=== PATIENT | male | born 1940 ===

== ENCOUNTER 2021-05-14 15:57 | Inpatient (IN) | payer OTHER ==
[~2021-05-14] VITALS: Ht 188 cm; Wt 91.7 kg
[2021-05-14] MEDS ORDERED: ASPI-963 PO (16:17)
[2021-05-14] MEDS ORDERED: MULT-211 PO (16:17)
[2021-05-14] MEDS ORDERED: LECI400C PO (16:17)
[2021-05-14] MEDS ORDERED: DEXAMETHASONE 4 MG/ML, 1ML IV ONE (16:30)
[2021-05-14 16:42] LABS: BASOPHILS % (AUTO) 0 % (0-1); EOSINOPHILS % (AUTO) 0 % (1-7); LYMPHOCYTES % (AUTO) 16 % (22-44); MEAN CORPUSCULAR HEMOGLOBIN 30.5 pg (27.5-34.5); MEAN CORPUSCULAR HGB CONC 34.4 g/dL (33.2-36.2); MEAN PLATELET VOLUME 6.5 fL (7.4-10.4); MONOCYTES % (AUTO) 3 % (2-9); NEUTROPHILS % (AUTO) 81 % (42-75); PLATELET COUNT 186 x10^3/uL (130-400); RED BLOOD COUNT 4.32 x10^6/uL (4.38-5.82); RED CELL DISTRIBUTION WIDTH 13.9 % (9.4-14.8)
[2021-05-14] MEDS ORDERED: DEXAMETHASONE 4 MG/ML, 1ML ONE (16:42)
[2021-05-14 16:49] LABS: ALANINE AMINOTRANSFERASE 46 U/L (12-78); ALBUMIN 2.5 g/dL (3.4-5.0); ANION GAP 7 mmol/L (5-15); CALCIUM 7.7 mg/dL (8.5-10.1); CHLORIDE 97 mmol/L (98-107); CREATININE 0.74 mg/dL (0.7-1.3)
[2021-05-14 16:51] LABS: ALKALINE PHOSPHATASE 86 U/L (45-117); BILIRUBIN,TOTAL 0.7 mg/dL (0.2-1.0); TOTAL PROTEIN 5.8 g/dL (6.4-8.2)
[2021-05-14] MEDS ORDERED: CEFTRIAXONE 1,000 MG in DEXTROSE 5% 50 ML IVPB ONE (17:00)
[2021-05-14] MEDS ORDERED: DOXYCYCLINE 100 MG in DEXTROSE 5% 250 ML IV ONE (17:00)
--- NOTE | 2021-05-14 17:08 | NUR ---
WEANED FROM 15L NRB TO 10L OXYMASK PER RT COVID SWAB OBTAINED PER GUIDELINES-WALKED TO LAB ABX STARTED AFTER CONFIRMATION THAT BLOOD CULTURES DRAWN
--- NOTE | 2021-05-14 18:32 | NUR ---
CONTACT: KARTIK HENRIQUEZ [phone]
--- NOTE | 2021-05-14 18:41 | NUR ---
REPORT FROM KALYN YOUNG
[2021-05-14] MEDS ORDERED: ENOXAPARIN 40 MG/0.4 ML SQ SCH (19:00)
[2021-05-14] MEDS ORDERED: LABETALOL 5MG/ML, 20ML IVPush PRN (19:00)
[2021-05-14] MEDS ORDERED: ONDANSETRON 2MG/ML, 2ML IVPush PRN (19:00)
[2021-05-14] MEDS ORDERED: POLYETHYLENE GLYCOL 17 GM PACKET PO PRN (19:00)
[2021-05-14] MEDS ORDERED: PHARMACY MAY ADJ FOR RENAL FX MC PRN (19:00)
--- NOTE | 2021-05-14 19:00 | NUR ---
REPORT TO LAYTON YOUNG
--- NOTE | 2021-05-14 19:28 | NUR ---
PT AT EDGE OF BED TRYING TO URINATE AND HAS TAKEN OXYGEN OFF TO DO SO. PT 70% RA. PT HELPED BACK INTO BED AND OXGEN PLACED BACK ON. PT NOW 88-90% ON OXYMASK AT 12 L.
--- NOTE | 2021-05-14 19:36 | NUR ---
PTS O2 AT 80%. PT HAS MASK OFF TO DRINK OJ. PT RE-EDUCATED ON IMPORTANCE OF KEEPING OXYGEN ON. OXY MASK PLACED BACK AT 15 L.
--- NOTE | 2021-05-14 19:50 | NUR ---
RT CALLED TO ASK ABOUT PLACING PT ON HIGH FLOW 02. RT STATED THEY WILL BE DOWN SHORTLY TO ASSESS PT.
--- NOTE | 2021-05-14 19:53 | NUR ---
PT NOW ON HIGH FLOW AT 40 L 90%.
--- NOTE | 2021-05-14 21:25 | NUR ---
SON, FLORENCE CALLED FOR UPDATE. WANTS NOTE PLACED THAT NO REMDISIVER GIVEN UNTIL THEY ARE ABLE TO TALK TO PCP. WILL PASS ON IN REPORT TO FOLLOWING RN WHEN ABLE.
--- NOTE | 2021-05-14 22:24 | NUR ---
REPORT TO RUDI YOUNG
--- NOTE | 2021-05-14 22:25 | NUR ---
SONFLORENCE CALLED AND UPDATED ABOUT PT MOVING TO ROOM 408, VM LEFT.
[2021-05-14] MEDS: FAMOTIDINE 20 MG TABLET PO SCH (23:10)
[2021-05-14] MEDS: ASCORBIC ACID 500 MG TABLET PO SCH (23:10)
[2021-05-14] MEDS: MELATONIN 5 MG TABLET PO SCH (23:10)
[2021-05-14 23:14] VITALS: BP 129/74
[2021-05-15 04:15] LABS: BASOPHILS % (AUTO) 0 % (0-1); EOSINOPHILS % (AUTO) 0 % (1-7); LYMPHOCYTES % (AUTO) 16 % (22-44); MEAN CORPUSCULAR HEMOGLOBIN 30.7 pg (27.5-34.5); MEAN CORPUSCULAR HGB CONC 34.4 g/dL (33.2-36.2); MEAN PLATELET VOLUME 6.5 fL (7.4-10.4); MONOCYTES % (AUTO) 3 % (2-9); NEUTROPHILS % (AUTO) 81 % (42-75); PLATELET COUNT 195 x10^3/uL (130-400); RED BLOOD COUNT 4.21 x10^6/uL (4.38-5.82)
[2021-05-15 04:25] VITALS: BP 121/68
[2021-05-15 04:38] LABS: CALCIUM 7.3 mg/dL (8.5-10.1); CHLORIDE 99 mmol/L (98-107)
[2021-05-15 04:41] LABS: ANION GAP 10 mmol/L (5-15); CREATININE 0.71 mg/dL (0.7-1.3)
[2021-05-15 08:01] VITALS: BP 143/74
[2021-05-15] MEDS ORDERED: FUROSEMIDE 40 MG/4 ML IV ONE (08:30)
[2021-05-15] MEDS: DOXYCYCLINE 100MG TABLET PO SCH ×2 (09:20→20:12)
[2021-05-15] MEDS: ZINC SULFATE 220 MG CAPSULE PO SCH (09:20)
[2021-05-15] MEDS: ASCORBIC ACID 500 MG TABLET PO SCH ×2 (09:20→20:11)
[2021-05-15] MEDS: FAMOTIDINE 20 MG TABLET PO SCH ×2 (09:20→20:18)
[2021-05-15] MEDS: DEXAMETHASONE 4 MG/ML, 1ML IVPush SCH (09:21)
[2021-05-15] MEDS: CEFTRIAXONE 1,000 MG in DEXTROSE 5% 50 ML IVPB SCH (09:21)
[2021-05-15 12:35] VITALS: BP 125/75
[2021-05-15 19:00] VITALS: BP 126/71
[2021-05-15] MEDS ORDERED: ENOXAPARIN 40 MG/0.4 ML SQ SCH (19:00)
[2021-05-15] MEDS: MELATONIN 5 MG TABLET PO SCH (20:17)
[2021-05-15] MEDS ORDERED: TEMAZEPAM 15 MG CAPSULE PO PRN (22:30)
[2021-05-16] VITALS (7 sets, daily range): BP systolic 115–176; BP diastolic 57–92
[2021-05-16] MEDS ORDERED: HALOPERIDOL 5 MG/ML ONE (01:14)
[2021-05-16] MEDS ORDERED: HALOPERIDOL 5 MG/ML IM ONE (01:30)
[2021-05-16] MEDS ORDERED: LORazepam 1MG TABLET ONE (04:34)
[2021-05-16] MEDS ORDERED: LORazepam 1MG TABLET PO ONE (05:00)
[2021-05-16 05:53] LABS: BASOPHILS % (AUTO) 1 % (0-1); CHLORIDE 101 mmol/L (98-107); EOSINOPHILS % (AUTO) 0 % (1-7); LYMPHOCYTES % (AUTO) 11 % (22-44); MEAN CORPUSCULAR HGB CONC 34.8 g/dL (33.2-36.2); MEAN PLATELET VOLUME 6.5 fL (7.4-10.4); MONOCYTES % (AUTO) 3 % (2-9); NEUTROPHILS % (AUTO) 86 % (42-75); PLATELET COUNT 310 x10^3/uL (130-400); RED BLOOD COUNT 4.86 x10^6/uL (4.38-5.82); RED CELL DISTRIBUTION WIDTH 13.8 % (9.4-14.8)
[2021-05-16 06:00] LABS: ALANINE AMINOTRANSFERASE 60 U/L (12-78); ALBUMIN 2.9 g/dL (3.4-5.0); ALKALINE PHOSPHATASE 99 U/L (45-117); ANION GAP 11 mmol/L (5-15); CALCIUM 8.1 mg/dL (8.5-10.1); TOTAL PROTEIN 6.7 g/dL (6.4-8.2)
[2021-05-16] MEDS ORDERED: POTASSIUM CHLORIDE 20 MEQ PACKET PO ONE (06:30)
[2021-05-16] MEDS: CEFTRIAXONE 1,000 MG in DEXTROSE 5% 50 ML IVPB SCH (08:56)
[2021-05-16] MEDS: DEXAMETHASONE 4 MG/ML, 1ML IVPush SCH (08:56)
[2021-05-16] MEDS: FAMOTIDINE 20 MG TABLET PO SCH (09:00)
[2021-05-16] MEDS ORDERED: DOXYCYCLINE 100 MG in DEXTROSE 5% 250 ML IV SCH (09:00)
[2021-05-16] MEDS: ZINC SULFATE 220 MG CAPSULE PO SCH (09:22)
[2021-05-16] MEDS: ASCORBIC ACID 500 MG TABLET PO SCH (09:23)
[2021-05-16] MEDS ORDERED: FUROSEMIDE 20 MG/2 ML IV ONE (09:30)
[2021-05-16] MEDS: CHOLECALCIFEROL 5,000u TAB PO SCH ×2 (09:30→12:02)
[2021-05-16] MEDS: THIAMINE 100MG TABLET PO SCH ×2 (09:30→12:02)
[2021-05-16] MEDS ORDERED: ENOXAPARIN 40 MG/0.4 ML SQ SCH (09:30)
[2021-05-16] MEDS ORDERED: REMDESIVIR 200 MG in SODIUM CHLORIDE 0.9% 100 ML IVPB ONE (10:30)
[2021-05-16] MEDS ORDERED: OLANZAPINE 10 MG INJ IM PRN ×2 (11:30→14:30)
[2021-05-16] MEDS ORDERED: ONDANSETRON 2MG/ML, 2ML IVPush PRN (16:00)
[2021-05-16] MEDS: POTASSIUM CHLORIDE 20 MEQ TAB.ER.PRT PO SCH ×2 (16:58→18:27)
[2021-05-16] MEDS ORDERED: FUROSEMIDE 40 MG/4 ML IV SCH (17:00)
[2021-05-16] MEDS: LORazepam 2 MG/ML, 1ML IVPush PRN ×3 (17:12→21:43)
[2021-05-16] MEDS: MORPHINE SULFATE 4 MG/ML, 1ML IVPush PRN ×3 (17:13→21:43)
[2021-05-17] MEDS: LORazepam 2 MG/ML, 1ML IVPush PRN ×11 (03:38→18:10)
[2021-05-17] MEDS: MORPHINE SULFATE 4 MG/ML, 1ML IVPush PRN ×7 (03:39→15:55)
[2021-05-17] MEDS ORDERED: REMDESIVIR 100 MG in SODIUM CHLORIDE 0.9% 100 ML IVPB SCH (10:30)
[2021-05-17] MEDS ORDERED: morphine SULFATE 100 MG in DEXTROSE 5% 90 ML IV PRN (14:00)
== END 2021-05-17 22:36 | DRG 177 ==
LOC: ED 16:02 → EDIP 20:08 → 4WST 22:59
PROVIDERS: ADMIT Internal Medicine; ATTEND Family Medicine
DX: U07.1 COVID-19 (principal); J96.01 Acute respiratory failure with hypoxia; J12.82 Pneumonia due to coronavirus disease 2019; E87.1 Hypo-osmolality and hyponatremia; Z51.5 Encounter for palliative care; I49.3 Ventricular premature depolarization; F19.10 Other psychoactive substance abuse, uncomplicated; D72.819 Decreased white blood cell count, unspecified; Z53.29 Procedure and treatment not carried out because of patient's decision for other reasons; Z66 Do not resuscitate; Z79.899 Other long term (current) drug therapy
CPT/HCPCS: 36415; 36600; 71045; 80048; 80053; 82803; 83605; 83735; 84145; 85025; 87040; 93005; 96365; 96375; 99285; G0378; J0696; J1100; J1650; J1940; J7060; U0005; J1630; J2060; J2270; U0003